=== PATIENT | male | born 1970 | race Caucasian/White ===

== ENCOUNTER 2018-08-10 21:45 | Observation (INO) | payer OTHER ==
[~2018-08-10] VITALS: Ht 170.2 cm; Wt 102.1 kg
[2018-08-10 21:53] VITALS: Ht 170.2 cm; Wt 102.1 kg
[2018-08-10 23:06] LABS: BASOPHIL % 0.5 % (0-2); PLATELET COUNT 300 x10^3mcL (130-400)
[2018-08-10 23:08] LABS: RED CELL DISTRIBUTION WIDTH 15.1 % (11.5-14.5)
[2018-08-10 23:11] LABS: CARBON DIOXIDE 21.2 mmol/L (21-32); CREATININE SERUM 1.7 mg/dL (0.7-1.3); POTASSIUM SERUM 3.9 mmol/L (3.5-5.1)
[2018-08-10 23:18] LABS: ALBUMIN 4.1 g/dL (3.4-5.0); BILIRUBIN TOTAL 0.56 mg/dL (0.20-1.00); TOTAL PROTEIN, SERUM 7.6 g/dL (6.4-8.2)
[2018-08-10 23:20] LABS: AMPHETAMINE QUAL UR NONE DETECTED (See below)
[2018-08-11] MEDS ORDERED: SEROQUEL XR150 M1 PO (02:35)
[2018-08-11] MEDS ORDERED: METFORMIN HCL500 MG PO (02:35)
[2018-08-11] MEDS ORDERED: BREO ELLIPTA1 PO1 IH (02:35)
[2018-08-11] MEDS ORDERED: VIIBRYD40 M1 PO (02:36)
[2018-08-11] MEDS ORDERED: OMEPRAZOLE40 M1 PO (02:36)
[2018-08-11] MEDS ORDERED: LIPI20 PO (02:36)
[2018-08-11] MEDS ORDERED: ASPIRIN ADULT L81 M5 PO (02:37)
[2018-08-11] MEDS ORDERED: ALLEGRA ALLERG180 M1 PO (02:37)
[2018-08-11 03:16] VITALS: BP 121/90
[2018-08-11 04:35] VITALS: BP 125/85
[2018-08-11 05:38] VITALS: BP 125/85
[2018-08-11 09:07] VITALS: BP 146/100
[2018-08-11 10:37] VITALS: BP 146/98
== END 2018-08-11 10:56 | disposition home or self-care (01) | DRG 392 ==
LOC: ED 21:45 → DU 08-11 01:44
PROVIDERS: Emergency Medicine; Internal Medicine Pulmonary Disease
DX: K21.9 Gastro-esophageal reflux disease without esophagitis (principal); F84.0 Autistic disorder; K22.4 Dyskinesia of esophagus; E11.22 Type 2 diabetes mellitus with diabetic chronic kidney disease; I12.9 Hypertensive chronic kidney disease with stage 1 through stage 4 chronic kidney disease, or unspecified chronic kidney disease; N18.2 Chronic kidney disease, stage 2 (mild); J45.909 Unspecified asthma, uncomplicated; E78.5 Hyperlipidemia, unspecified; E66.9 Obesity, unspecified; Z79.84 Long term (current) use of oral hypoglycemic drugs
CPT/HCPCS: 83880; 85378; G0378; J1650; J1885; J7620; J7633; Q0092